=== PATIENT | female | born 1995 | race Caucasian/White ===

== ENCOUNTER 2020-12-09 16:53 | Emergency (ER) | payer MEDICAID ==
[2020-12-09] MEDS ORDERED: IBUPROFEN 800 MG TABLET PO STA (17:20)
--- NOTE | 2020-12-09 17:22 | ED Physician Documentation ---
History of Present Illness - Stated complaint Stated Complaint: RT FOOT PX - Chief complaint Chief Complaint: Ext Problem - History obtained from History obtained from: Patient - History of Present Illness Timing: Today Pain level max: 7 Pain level now: 5 - Additonal information Additional information: Patient is a 25-year-old female who presents to the emergency department stating that the top of her foot hurts. States it is worse with walking and bending. Better with rest. 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 Does not recall any injury. Has not taken anything for the pain. 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 - Present Medications Home Medications: Ambulatory Orders Medication Instructions Recorded Confirmed Ibuprofen [Motrin] 800 mg PO Q8H PRN #30 tablet 12/09/20 - Allergies Allergies/Adverse Reactions: Allergies Allergy/AdvReac Type Severity Reaction Status Date / Time No Known Drug Allergies Allergy Verified 12/09/20 16:54 - Social History Does the pt smoke?: No Smoking Status: Never smoker Does the pt drink ETOH?: No Does the pt have substance abuse?: Yes Substance Use and Type: Marijuana - Immunizations Immunizations are current?: Yes Immunizations: TDAP >10years/unknown - POLST Patient has POLST: No PD ED PE NORMAL - Vitals Vital signs reviewed: Yes - General General: Alert and oriented X 3, No acute distress - HEENT HEENT: Moist mucous membranes - Neck Neck: Supple, no meningeal sign - Derm Derm: Warm and dry - Extremities Extremities: Other (TTP over the dorsum of the foot. NVI. Pain with ROM, especially plantar flexion of the toes. o/w normal foot and ankle exam.) - Neuro Neuro: Alert and oriented X 3 - Psych Psych: Normal mood, Normal affect Results - Vitals Vitals: Vital Signs - 24 hr 12/09/20 12/09/20 16:55 18:18 Temperature 36.7 C 37.1 C Heart Rate 98 103 H Respiratory 16 16 Rate Blood Pressure 141/96 H 138/80 H O2 Saturation 100 100 Oxygen O2 Source Room air - Rads (name of study) R foot xray Radiology: Prelim report reviewed, EMP read contemporaneously, See rad report (No acute findings) PD MEDICAL DECISION MAKING - ED course Complexity details: reviewed results, re-evaluated patient, considered differential, d/w patient ED course: Patient with a right foot strain. Likely from repetitive use from bending. We will place her on NSAIDs. We will have her follow-up with her doctor for further care. [place] bandage applied as well. Patient counseled regarding signs and symptoms for which I believe and urgent re-evaluation would be necessary. Patient with good understanding of and agreement to plan and is comfortable going home at this time This document was made in part using voice recognition software. While efforts are made to proofread this document, sound alike and grammatical errors may occur. Departure - Departure Disposition: 01 Home, Self Care Clinical Impression: Strain of foot, right Qualifiers: Encounter type: initial encounter Qualified Code(s): S96.911A - Strain of unspecified muscle and tendon at ankle and foot level, right foot, initial encounter Condition: Good Instructions: ED Sprain Foot Follow-Up: your,doctor in 1 week [Other] Prescriptions: Ibuprofen [Motrin] 800 mg PO Q8H PRN #30 tablet PRN Reason: PAIN &/OR FEVER Comments: There are no acute findings on your x-ray today. Follow-up with your doctor for further care. Occasionally physical therapy will be needed for inflammation in the foot like this. Make sure you are wearing supportive shoes with a good insert and arch support. Continue to gently stretch your foot as well, this will help with the inflammation. Discharge Date/Time: 12/09/20 18:28
--- NOTE | 2020-12-09 17:50 | XRAY Report ---
PROCEDURE: Foot 3 View RT INDICATIONS: foot pain TECHNIQUE: 3 views of the foot were acquired. COMPARISON: None FINDINGS: Bones: No fractures or dislocations. No suspicious bony lesions. Soft tissues: No tibiotalar joint effusion. Achilles tendon appears normal. IMPRESSION: No acute right foot fracture or dislocation. Reviewed by: Pacheco Good MD on 12/09/2020 4:49 PM [facility] Approved by: Pacheco Good MD on 12/09/2020 4:49 PM [facility] Station ID: [id number]
[2020-12-09 18:18] VITALS: BP 138/80
== END 2020-12-09 18:28 | disposition home or self-care (01) ==
LOC: ED 16:53
DX: S96.911A Strain of unspecified muscle and tendon at ankle and foot level, right foot, initial encounter (principal); X58.XXXA Exposure to other specified factors, initial encounter
CPT/HCPCS: 73630; 99282; 99283; A9270

== ENCOUNTER 2022-09-19 10:01 | Emergency (ER) | payer MEDICAID ==
--- NOTE | 2022-09-19 11:07 | XRAY Report ---
PROCEDURE: Chest 1 View X-Ray INDICATIONS: Chest pain TECHNIQUE: One view of the chest was acquired. COMPARISON: None. FINDINGS: Surgical changes and devices: None. Lungs and pleura: No pleural effusions or pneumothorax. Lungs are clear. Mediastinum: Mediastinal contours appear normal. Heart size is normal. Bones and chest wall: No suspicious bony lesions. Overlying soft tissues appear unremarkable. IMPRESSION: Unremarkable single view chest. No pneumothorax or infiltrate can be seen. Reviewed by: Bry Montelongo MD on 09/19/2022 10:05 AM [facility] Approved by: Bry Montelongo MD on 09/19/2022 10:05 AM [facility] Station ID: [id number]
[2022-09-19 11:21] LABS: BASOPHILS % (AUTO) 0.4 %; EOSINOPHILS # (AUTO) 0.2 10^3/uL (0.0-0.7); HCT - HEMATOCRIT 33.7 % (37.0-47.0); HGB - HEMOGLOBIN 10.9 g/dL (12.0-16.0); LYMPHOCYTES # (AUTO) 1.5 10^3/uL (1.5-3.5); LYMPHOCYTES % (AUTO) 15.9 %; MEAN CORPUSCULAR HEMOGLOBIN 25.4 pg (27.0-31.0); MEAN CORPUSCULAR HGB CONC 32.3 g/dL (32.0-36.0); MEAN CORPUSCULAR VOLUME 78.6 fL (81.0-99.0); MEAN PLATELET VOLUME 10.5 fL (7.9-10.8); MONOCYTES # (AUTO) 1.1 10^3/uL (0.0-1.0); MONOCYTES % (AUTO) 11.9 %; NEUTROPHILS # (AUTO) 6.5 10^3/uL (1.5-6.6); NEUTROPHILS % (AUTO) 69.7 %; PLT - PLATELET COUNT 318 10^3/uL (130-450); RED BLOOD COUNT 4.29 10^6/uL (4.20-5.40); RED CELL DISTRIBUTION WIDTH 15.2 % (12.0-15.0); WHITE BLOOD COUNT 9.4 x10^3/uL (4.8-10.8)
[2022-09-19 11:35] LABS: ALBUMIN 3.8 g/dL (3.2-5.5); ALBUMIN/GLOBULIN RATIO 0.8 (1.0-2.2); BILIRUBIN,TOTAL 0.4 mg/dL (0.2-1.0); CALCIUM 9.2 mg/dL (8.5-10.3); CREATININE 0.6 mg/dL (0.4-1.0); POTASSIUM 3.6 mmol/L (3.5-5.0); TOTAL PROTEIN 8.4 g/dL (6.7-8.2)
--- NOTE | 2022-09-19 11:47 | ED Physician Documentation ---
History of Present Illness - Stated complaint Stated Complaint: BACK PAIN,COUGH - Chief complaint Chief Complaint: Resp - Additonal information Additional information: 26-year-old female who has a history of asthma presents emergency department with 3 days of cough, subjective fevers and pain when she coughs. No vomiting or diarrhea. Does have a history of asthma for which she uses albuterol. No history of diabetes tobaccoism. She is vaccinated and boosted for COVID. She has been taking Tylenol and DayQuil NyQuil without relief of symptoms. 9 in the room she appears remarkably well. Room air saturations 97% no respiratory distress. Review of Systems Constitutional: reports: Fever, Myalgias Eyes: reports: Reviewed and negative Throat: reports: Reviewed and negative Cardiac: reports: Reviewed and negative Respiratory: reports: Cough. 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 - Present Medications Home Medications: Ambulatory Orders Medication Instructions Recorded Confirmed Ibuprofen [Motrin] 800 mg PO Q8H PRN #30 tablet 12/09/20 - Allergies Allergies/Adverse Reactions: Allergies Allergy/AdvReac Type Severity Reaction Status Date / Time No Known Drug Allergies Allergy Verified 12/09/20 16:54 - Social History Does the pt smoke?: No Smoking Status: Never smoker Does the pt drink ETOH?: No Does the pt have substance abuse?: Yes - Immunizations Immunizations are current?: Yes Immunizations: TDAP >10years/unknown - POLST Patient has POLST: No PD ED PE NORMAL - General General: Alert and oriented X 3, No acute distress. No: Well developed/nourished (Obese) - HEENT HEENT: Atraumatic, Moist mucous membranes - Cardiac Cardiac: RRR, No murmur - Respiratory Respiratory: No respiratory distress, Clear bilaterally - Abdomen Abdomen: Normal bowel sounds, Soft - Back Back: No CVA TTP - Derm Derm: Normal color, Warm and dry, No rash - Extremities Extremities: No deformity, No tenderness to palpate, Normal ROM s pain - Neuro Neuro: Alert and oriented X 3, foster parent 2-12 intact Eye Opening: Spontaneous Motor: Obeys Commands Verbal: Oriented GCS Score: 15 Results - Vitals Vitals: Vital Signs - 24 hr 09/19/22 09/19/22 10:40 11:45 Temperature 37.4 C Heart Rate 117 H 76 Respiratory 18 20 Rate Blood Pressure 99/65 131/68 H O2 Saturation 100 99 Oxygen O2 Source Room air - EKG (time done) 1048 Rate: Rate (enter#) (114) Rhythm: Sinus tachycardia [place]: Normal Intervals: Normal [place] QRS: Normal Ischemia: Normal ST segments Compare to prior EKG: Old EKG unavailable Computer interpretation: Agree with computer - Labs Labs: Laboratory Tests 09/19/22 09/19/22 09/19/22 10:43 11:15 11:15 WBC 9.4 RBC 4.29 Hgb 10.9 L Hct 33.7 L MCV 78.6 L MCH 25.4 L MCHC 32.3 RDW 15.2 H Plt Count 318 MPV 10.5 Neut # (Auto) 6.5 Lymph # (Auto) 1.5 [place] # (Auto) 1.1 H Eos # (Auto) 0.2 Baso # (Auto) 0.0 Absolute Nucleated RBC 0.00 Nucleated RBC % 0.0 Sodium 134 L Potassium 3.6 Chloride 102 Carbon Dioxide 23 Anion Gap 9.0 BUN 13 Creatinine 0.6 Estimated GFR (MDRD) 120 Glucose 106 H Calcium 9.2 Total Bilirubin 0.4 AST 18 ALT 23 Alkaline Phosphatase 51 Troponin I High Sens Total Protein 8.4 H Albumin 3.8 Globulin 4.6 H Albumin/Globulin Ratio 0.8 L Lipase 29 Nasal Adenovirus (PCR) NOT DETECTED Nasal B. parapertussis DNA (PCR) NOT DETECTED Nasal Coronavir 229E PCR NOT DETECTED Nasal Coronavir HKU1 PCR NOT DETECTED Nasal Coronavir NL63 PCR NOT DETECTED Nasal Coronavir OC43 PCR NOT DETECTED Nasal Enterovir/Rhinovir PCR NOT DETECTED Nasal Influenza A H3 PCR DETECTED A Nasal Influenza B PCR NOT DETECTED Nasal Parainfluen 1 PCR NOT DETECTED Nasal Parainfluen 2 PCR NOT DETECTED Nasal Parainfluen 3 PCR NOT DETECTED Nasal Parainfluen 4 PCR NOT DETECTED Nasal RSV (PCR) NOT DETECTED Nasal B.pertussis DNA PCR NOT DETECTED Nasal C.pneumoniae (PCR) NOT DETECTED Sh[place]anu Human Metapneumo PCR NOT DETECTED Nasal M.pneumoniae (PCR) NOT DETECTED Nasal SARS-CoV-2 (PCR) NOT DETECTED 09/19/22 11:15 WBC RBC Hgb Hct MCV MCH MCHC RDW Plt Count MPV Neut # (Auto) Lymph # (Auto) [place] # (Auto) Eos # (Auto) Baso # (Auto) Absolute Nucleated RBC Nucleated RBC % Sodium Potassium Chloride Carbon Dioxide Anion Gap BUN Creatinine Estimated GFR (MDRD) Glucose Calcium Total Bilirubin AST ALT Alkaline Phosphatase Troponin I High Sens < 2.3 L Total Protein Albumin Globulin Albumin/Globulin Ratio Lipase Nasal Adenovirus (PCR) Nasal B. parapertussis DNA (PCR) Nasal Coronavir 229E PCR Nasal Coronavir HKU1 PCR Nasal Coronavir NL63 PCR Nasal Coronavir OC43 PCR Nasal Enterovir/Rhinovir PCR Nasal Influenza A H3 PCR Nasal Influenza B PCR Nasal Parainfluen 1 PCR Nasal Parainfluen 2 PCR Nasal Parainfluen 3 PCR Nasal Parainfluen 4 PCR Nasal RSV (PCR) Nasal B.pertussis DNA PCR Nasal C.pneumoniae (PCR) Shantanu Human Metapneumo PCR Nasal M.pneumoniae (PCR) Nasal SARS-CoV-2 (PCR) - Rads (name of study) cxr Radiology: Final report received (No acute cardiopulmonary process) PD MEDICAL DECISION MAKING - ED course Complexity details: considered differential, d/w patient ED course: Well-appearing 26-year-old female who has a history of asthma presents emergency department for evaluation of 3 days cough congestion and fever. She has been using albuterol and on exam here there is no wheeze or distressed breathing. Room air saturations are 97%. No tachypnea. Chest x-ray was without acute focal findings. Given the lack of wheeze I doubt an asthma exacerbation. Respiratory PCR is pending. I suspect that she has a viral upper respiratory infection. We will follow-up PCR results. Screening labs and an EKG were obtained by triage which indicate no acute worrisome results. EKG is sinus tachycardia without ischemic changes. Her troponin is negative. We discussed routine conservative care measures of viral upper respiratory infections as well as the emergent return precautions. 2140: I attempted to notify patient that she has tested positive for influenza A. However there was no answer at the listed numbers. I did leave a voice message the questing return call back. She is outside the window to consider treatment for Tamiflu. We had previously discussed that I felt this was likely acute influenza as well as the emergent return precautions Departure - Departure Disposition: 01 Home, Self Care Clinical Impression: Viral URI with cough, Influenza A Condition: Stable Record reviewed to determine appropriate education?: Yes Instructions: ED Viral Syndrome Comments: Rafia you are seen today in the emergency department because you have had about 2 to 3 days of cough congestion and some fevers at home. Your back hurts when you cough. Your chest x-ray is negative for any findings to suggest pneumonia. You most likely have a viral upper respiratory infection that should begin to get better between day 5 and 10. Respiratory PCR is pending. We will call you with any positive results however if you do not hear from us I do recommend that you log onto the [employer] portal to find out the results. It is likely that you have one of the more common respiratory variance in the community right now either influenza a, rhinovirus, RSV or even parainfluenza. Return to the emergency department for fevers that last beyond 1 week, severe respiratory distress or any uncontrolled vomiting diarrhea or chest pain Discharge Date/Time: 09/19/22 12:10
[2022-09-19 11:50] VITALS: BP 131/68
[2022-09-19 15:36] LABS: B. PARAPERTUSSIS- RESP PCR PAN NOT DETECTED; B. PERTUSSIS- RESP PCR PANEL NOT DETECTED; C. PNEUMONIAE- RESP PCR PANEL NOT DETECTED; CORONAVIRUS 229E-RESP PCR NOT DETECTED; CORONAVIRUS HKU1-RESP PCR NOT DETECTED; CORONAVIRUS NL63-RESP PCR NOT DETECTED; CORONAVIRUS OC43-RESP PCR NOT DETECTED; HUMAN METAPNEUMOVIRUS NOT DETECTED; INFLUENZA A H3- RESP PCR PANEL DETECTED; INFLUENZA B - RESP PCR PANEL NOT DETECTED; M. PNEUMONIAE- RESP PCR PANEL NOT DETECTED; PARAINFLUENZA VIRUS 1 NOT DETECTED; PARAINFLUENZA VIRUS 2 NOT DETECTED; PARAINFLUENZA VIRUS 3 NOT DETECTED; PARAINFLUENZA VIRUS 4 NOT DETECTED; RHINOVIRUS/ENTEROVIRUS NOT DETECTED; RSV- RESP PCR PANEL NOT DETECTED; SARS-CoV-2 -RESP PCR PANEL NOT DETECTED
== END 2022-09-19 12:10 | disposition home or self-care (01) ==
LOC: ED 10:01
DX: J10.1 Influenza due to other identified influenza virus with other respiratory manifestations (principal); J06.9 Acute upper respiratory infection, unspecified; R00.0 Tachycardia, unspecified; J45.909 Unspecified asthma, uncomplicated; Z79.899 Other long term (current) drug therapy
CPT/HCPCS: 36415; 80053; 83690; 84484; 85025; 87633; 93005; 99283; 99284

== ENCOUNTER 2023-04-17 08:59 | Emergency (ER) | payer MEDICAID ==
[2023-04-17 09:10] VITALS: BP 174/107
--- NOTE | 2023-04-17 10:43 | ED Physician Documentation ---
PD HPI DYSPNEA - Stated complaint Stated Complaint: SOA - Chief complaint Chief Complaint: Resp - History obtained from History obtained from: Patient, Family - History of Present Illness Timing - onset: How many days ago (2) Timing - onset during: Rest Timing - duration: Days (2) Timing - details: Gradual onset, Still present Inciting event(s): Other (exposure to horse barn and dust) Improved by: Inhaler/neb Worsened by: Exertion, Coughing Associated symptoms: Cough, Wheezing. No: Fever, Hemoptysis, Chest pain / discomfort, Palpitations, Diaphoresis, Bilateral edema, Unilateral edema Similar symptoms before: Diagnosis (allegic asthma) Recently seen: Not recently seen - Additional information Additional information: Shannen Rader is a 27-year-old female who has a history of allergic asthma. She has developed increased symptoms over the past 5 days she has not had to have a prednisone course for several years. She has run out of her inhaler. She presents to the emergency department today with wheezing of 5 days duration.She denies any fever or production of phlegm. 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 - Present Medications Home Medications: Ambulatory Orders Medication Instructions Recorded Confirmed Ibuprofen [Motrin] 800 mg PO Q8H PRN #30 tablet 12/09/20 Albuterol Sulf [Ventolin Hfa 1 - 2 puffs INH Q4HR PRN #1 each 04/17/23 Inhaler] predniSONE [Deltasone] 40 mg PO DAILY 5 Days #10 tablet 04/17/23 - Allergies Allergies/Adverse Reactions: Allergies Allergy/AdvReac Type Severity Reaction Status Date / Time No Known Drug Allergies Allergy Verified 04/17/23 09:06 - Social History Does the pt smoke?: No Smoking Status: Never smoker Does the pt drink ETOH?: No Does the pt have substance abuse?: Yes - Immunizations Immunizations are current?: Yes Immunizations: TDAP >10years/unknown - POLST Patient has POLST: No PD ED PE NORMAL - Vitals Vital signs reviewed: Yes (Hypertensive) - General General: Alert and oriented X 3, No acute distress, Well developed/nourished - HEENT HEENT: Atraumatic, PERRL, EOMI, Ears normal, Pharynx benign - Neck Neck: Supple, no meningeal sign, No bony TTP - Cardiac Cardiac: RRR, No murmur - Respiratory Respiratory: No respiratory distress, Other (Diminished breath sounds) - Abdomen Abdomen: Soft, Non tender - Back Back: No CVA TTP, No spinal TTP - Derm Derm: Normal color, Warm and dry, No rash - Extremities Extremities: No deformity, No edema - Neuro Neuro: Alert and oriented X 3, manager of allied health services 2-12 intact, No motor deficit, No sensory deficit, Normal speech Eye Opening: Spontaneous Motor: Obeys Commands Verbal: Oriented GCS Score: 15 - Psych Psych: Normal mood, Normal affect Results - Vitals Vitals: Vital Signs - 24 hr 04/17/23 09:03 Temperature 36.6 C Heart Rate 99 Respiratory 18 Rate Blood Pressure 174/107 H O2 Saturation 100 Oxygen O2 Source Room air PD Medical Decision Making - ED course Complexity details: reviewed results, re-evaluated patient, considered differential, d/w patient ED course: 27-year-old Rafia Rader has a history of allergic asthma and appears to be having an exacerbation. She uses her inhaler infrequently enough that she has an inhaler that has run out. Today we will start her on a course of prednisone 40 mg daily for 5 days as well as provide an inhaler. Departure - Departure Disposition: 01 Home, Self Care Clinical Impression: Allergic asthma Qualifiers: Asthma severity: mild Asthma persistence: intermittent Asthma complication type: with acute exacerbation Qualified Code(s): J45.21 - Mild intermittent asthma with (acute) exacerbation Condition: Stable Instructions: ED Reactive Airway Disease, ED Inhaler Use Follow-Up: [facility] [Provider Group] Prescriptions: Albuterol Sulf [Ventolin Hfa Inhaler] 1 - 2 puffs INH Q4HR PRN #1 each PRN Reason: Shortness Of Air/Wheezing predniSONE [Deltasone] 40 mg PO DAILY 5 Days #10 tablet Comments: Rafia, it looks like you have allergic asthma and our recommendation is to fill the medications that were prescribed to you to include an inhaler and a 5-day course of prednisone. Our expectations with treatment are continued improvement in shortness of breath and wheezing. If you develop production of yellow and green phlegm or a fever return to see us or go into see your primary care doctor. I recommend the addition of an antihistamine nonsedating like Claritin or Pastora when you are having symptoms. Discharge Date/Time: 04/17/23 11:08
== END 2023-04-17 11:08 | disposition home or self-care (01) ==
LOC: ED 08:59
DX: J45.21 Mild intermittent asthma with (acute) exacerbation (principal)
CPT/HCPCS: 99282; 99284

== ENCOUNTER 2023-06-08 16:47 | Emergency (ER) | payer MEDICAID ==
--- NOTE | 2023-06-08 16:52 | ED Physician Documentation ---
PD HPI LOWER EXT INJURY - Stated complaint Stated Complaint: RT ANKLE PX - History obtained from History obtained from: Patient - History of Present Illness PD HPI LOW EXT INJURY LOCATION: Right, Ankle Type of injury: Twist (inversion direction, while walking uneven area driveway.) Where injury occurred: Home Timing - onset: Last night Timing - details: Abrupt onset, Still present Improved by: Rest Worsened by: Moving, Palpating (lateral), Other (walking hurts with step off portion.) Associated symptoms: Swelling. 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 - Present Medications Home Medications: Ambulatory Orders Medication Instructions Recorded Confirmed Ibuprofen [Motrin] 800 mg PO Q8H PRN #30 tablet 12/09/20 Albuterol Sulf [Ventolin Hfa 1 - 2 puffs INH Q4HR PRN #1 each 04/17/23 Inhaler] predniSONE [Deltasone] 40 mg PO DAILY 5 Days #10 tablet 04/17/23 - Allergies Allergies/Adverse Reactions: Allergies Allergy/AdvReac Type Severity Reaction Status Date / Time No Known Drug Allergies Allergy Verified 04/17/23 09:06 - Social History Does the pt smoke?: No Smoking Status: Never smoker Does the pt drink ETOH?: No Does the pt have substance abuse?: Yes - Immunizations Immunizations are current?: Yes Immunizations: TDAP >10years/unknown - POLST Patient has POLST: No PD ED PE NORMAL - Vitals Vital signs reviewed: Yes - General General: Alert and oriented X 3, No acute distress, Well developed/nourished - Derm Derm: Normal color, Warm and dry - Extremities Extremities: Other (right ankle with swelling and tender laterally just forward of the malleolus c/w area of ATFL. pain but no gross laxity with inversion stress. Medially not tender. ) Results - Vitals Vitals: Oxygen O2 Source Room air - Rads (name of study) right ankle Relevant Findings:: Prelim report reviewed, EMP independent interpretation of test (no fractures) PD Medical Decision Making - ED course Complexity details: considered differential (ankle sprain with typical area of swelling/tender. Can give ankle brace. She did not feel she needed crutches. ), d/w patient Departure - Departure Disposition: 01 Home, Self Care Clinical Impression: Ankle sprain Qualifiers: Encounter type: initial encounter Involved ligament of ankle: anterior talofibular ligament Condition: Stable Record reviewed to determine appropriate education?: Yes Instructions: ED Sprain Ankle W X Ray Comments: Your x-ray is normal without any signs of fractures. Obviously there is still a sprain of the ankle. This can be supported with a strap on ankle brace. Limit activity to comfort. Elevate ice and rest the ankle often tonight and in the morning. Use some ibuprofen 3 times daily for the next several days to week and add Tylenol every 4 hours if needed for pain. Activity as tolerated. I would anticipate improvement over the next several days to week but may take even a couple of weeks to get back to full normal. Use the ankle brace when up and around for the next couple of weeks. Forms: PCP List Discharge Date/Time: 06/08/23 17:53
[2023-06-08] MEDS ORDERED: IBUPROFEN 600 MG TABLET PO STA (17:03)
--- NOTE | 2023-06-08 17:50 | XRAY Report ---
PROCEDURE: Ankle 3 View RT INDICATIONS: inversion right ankle TECHNIQUE: 3 views of the ankle were acquired. COMPARISON: None. FINDINGS: Bones: No fractures or dislocations. Ankle mortise is normally aligned. No suspicious bony lesions . Soft tissues: No tibiotalar joint effusion. Achilles tendon appears normal. IMPRESSION: 1. No visible fractures. 2. If there is continued concern for occult fracture, immobilization and reimaging in 7 days is recom mended. Reviewed by: Sameera Conrad MD on 06/08/2023 5:48 PM PDT Approved by: Sameera Conrad MD on 06/08/2023 5:48 PM PDT Station ID: [id number]
[2023-06-08 17:58] VITALS: BP 158/97
== END 2023-06-08 17:53 | disposition home or self-care (01) ==
LOC: ED 16:47
DX: S93.491A Sprain of other ligament of right ankle, initial encounter (principal); X50.1XXA Overexertion from prolonged static or awkward postures, initial encounter; Y93.01 Activity, walking, marching and hiking; Y92.008 Other place in unspecified non-institutional (private) residence as the place of occurrence of the external cause
CPT/HCPCS: 73610; 99283; A9270

== ENCOUNTER 2023-09-24 15:42 | Emergency (ER) | payer MEDICAID ==
[2023-09-24 16:01] VITALS: BP 160/90; O2SAT 100
--- NOTE | 2023-09-24 16:04 | XRAY Report ---
PROCEDURE: Hand 3 View RT INDICATIONS: Trauma TECHNIQUE: 3 views of the hand(s) acquired. COMPARISON: None. FINDINGS: Bones: No fractures or dislocations. No suspicious bony lesions. Soft tissues: No suspicious soft tissue calcifications or masses. IMPRESSION: No acute bony abnormality. Reviewed by: Maximiliano Vincent MD on 09/24/2023 3:03 PM [place] Approved by: Maximiliano Vincent MD on 09/24/2023 3:03 PM [facility] Station ID: [id number]
--- NOTE | 2023-09-24 16:52 | ED Physician Documentation ---
PD HPI UPPER EXT INJURY - Stated complaint Stated Complaint: RT HAND PX - Chief complaint Chief Complaint: Ext Problem - History obtained from History obtained from: Patient - History of Present Illness Location: Right - Additonal information Additional information: This is a 28-year-old female who presents with right hand pain primarily at the base of the right thumb. Symptoms have been present for about a week and a half. 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 She is left-handed and uses the right hand less so but still frequently. Denies any injuries to the right hand or wrist, no falls or trauma. She believes there is a small amount of swelling, no erythema. She has tried ice and ibuprofen without relief. She felt like the pain was getting worse and it is hard to satellite communications engineer things and she actually dropped something today because she could not satellite communications engineer it due to discomfort. She has no other areas of weakness, no numbness. PD PAST MEDICAL HISTORY - Past Medical History Past Medical History: Yes Cardiovascular: None Respiratory: Asthma Neuro: None Endocrine/Autoimmune: None GI: None MANAGER GALLERY: None : None HEENT: None Psych: None Musculoskeletal: None Derm: None - Past Surgical History Past Surgical History: Yes /MANAGER GALLERY: section - Present Medications Home Medications: Ambulatory Orders Medication Instructions Recorded Confirmed Ibuprofen [Motrin] 800 mg PO Q8H PRN #30 tablet 12/09/20 Albuterol Sulf [Ventolin Hfa 1 - 2 puffs INH Q4HR PRN #1 each 04/17/23 Inhaler] predniSONE [Deltasone] 40 mg PO DAILY 5 Days #10 tablet 04/17/23 - Allergies Allergies/Adverse Reactions: Allergies Allergy/AdvReac Type Severity Reaction Status Date / Time No Known Drug Allergies Allergy Verified 09/24/23 15:46 - Social History Does the pt smoke?: No Smoking Status: Never smoker Does the pt drink ETOH?: No Does the pt have substance abuse?: Yes - Immunizations Immunizations are current?: Yes Immunizations: TDAP >10years/unknown - POLST Patient has POLST: No PD ED PE NORMAL - Vitals Vital signs reviewed: Yes - General General: Alert and oriented X 3, No acute distress, Well developed/nourished - Derm Derm: Normal color, Warm and dry - Extremities Extremities: No deformity, Other (Trace swelling at the base of the right thumb no erythema. There is tenderness with opposition and flexion extension of the thumb. Mild tenderness with flexion extension of rt wrist. Tenderness with palpation over the thenar junction of the rt thumb) Results - Vitals Vitals: Vital Signs - 24 hr 09/24/23 15:46 Temperature 36.5 C Heart Rate 100 Respiratory 16 Rate Blood Pressure 160/90 H O2 Saturation 100 Oxygen O2 Source Room air PD Medical Decision Making - ED course Complexity details: considered differential, d/w patient ED course: 28-year-old female presents with atraumatic pain of the base of the right thumb. Is been present for about a week and a half. There is no signs of infection, trace swelling or erythema. She does do a number of activities that could be contributing to a tendinitis or a de Quervain tenosynovitis And I think this is a likely cause of her pain. I have recommended that we put her in a thumb spica splint and she continue regular NSAID use and a cool compress over the area. She will need to follow-up with her PCP if no improvement as she may benefit from PT OT for this issue or referral to hand specialist for further evaluation. I did discuss with patient that it can take quite some time to get better particularly due to the nature of her work and the need to frequently use her hands. Departure - Departure Disposition: 01 Home, Self Care Clinical Impression: De Quervain's tenosynovitis, right Condition: Good Instructions: ED De Quervain Tenosynovitis Comments: I suspect your pain is due to De Quervain Tenosynovitis which is inflammation of the tendons that control the movement of the thumb. This can occur after repetitive motion activity, and is particular seen in people caring for infants due to diaper changes or other recurrent motion of the thumb and hand. Initial treatment is supportive, we will give you a splint that I would like you to wear whenever possible, and you should take ibuprofen or another anti-inflammatory medication throughout the day to help with your symptoms. You should also ice this area as frequently as possible. Follow-up with your primary doctor and the y may refer you to hand specialist or occupational therapist for follow-up if there is no improvement with rest. Forms: PCP List
== END 2023-09-24 17:00 | disposition home or self-care (01) ==
LOC: ED 15:42
DX: M65.4 Radial styloid tenosynovitis [de Quervain] (principal); Z79.899 Other long term (current) drug therapy
CPT/HCPCS: 99283

== ENCOUNTER 2023-10-10 11:08 | Outpatient (CLI) | payer MEDICAID | END 2023-10-10 11:09 | disposition home or self-care (01) | LOC: LAB.S 11:08 | PROVIDERS: ATTEND Registered Nurse | DX: Z02.1 Encounter for pre-employment examination (principal); Z11.1 Encounter for screening for respiratory tuberculosis | CPT/HCPCS: 81599 ==

== ENCOUNTER 2023-11-11 09:44 | Outpatient (CLI) | payer MEDICAID | END 2023-11-11 09:45 | disposition home or self-care (01) | LOC: LAB 09:44 | PROVIDERS: ATTEND Registered Nurse | DX: Z02.1 Encounter for pre-employment examination (principal); Z11.1 Encounter for screening for respiratory tuberculosis | CPT/HCPCS: 81599 ==

== ENCOUNTER 2023-11-30 08:00 | Outpatient (CLI) | payer MEDICAID ==
--- NOTE | 2023-12-01 09:45 | XRAY Report ---
PROCEDURE: Chest 2V INDICATIONS: ACUTE COUGH TECHNIQUE: 2 views of the chest were acquired. COMPARISON: Chest radiograph on September 19, 2022. FINDINGS: Surgical changes and devices: None. Lungs and pleura: No pleural effusions or pneumothorax. Lungs are clear. Mediastinum: Mediastinal contours appear normal. Heart size is normal. Bones and chest wall: No suspicious bony lesions. Overlying soft tissues appear unremarkable. IMPRESSION: No acute cardiopulmonary process. Reviewed by: Erwin Charlton MD on 12/01/2023 9:44 AM PST Approved by: Erwin Charlton MD on 12/01/2023 9:44 AM PST Station ID: [id number]
== END 2023-11-30 23:59 | disposition home or self-care (01) ==
LOC: DI.S 08:00
PROVIDERS: ATTEND Internal Medicine
DX: R05.1 Acute cough (principal)